=== PATIENT | female | born 1985 ===

== ENCOUNTER → 2017-11-24 | Emergency (ER) | payer OTHER ==
[~2017-11-24] VITALS: Ht 165.1 cm; Wt 54.4 kg
== END | disposition home or self-care (01) ==
LOC: ER 20:37
DX: R10.31 Right lower quadrant pain (principal)

== ENCOUNTER → 2018-08-21 | Emergency (ER) | payer OTHER ==
[~2018-08-21] VITALS: Ht 165.1 cm; Wt 56.7 kg
[~2018-08-21] MED LIST: AMOX1TAB5
== END | disposition left against medical advice (07) ==
LOC: ER 03:10
DX: Z53.20 Procedure and treatment not carried out because of patient's decision for unspecified reasons (principal)